=== PATIENT | female | born 1970 | race Caucasian/White ===

== ENCOUNTER 2022-09-25 23:48 | Emergency (ER) | payer OTHER ==
[2022-09-25 23:58] VITALS: BP 164/71; PULSE 69; RESP 18; TEMP 98; BMI 28.3
[2022-09-26] MEDS ORDERED: diphenhydrAMINE HCL 25 MG CAPSULE (FP) PO ONE ×2 (02:39→02:51)
== END 2022-09-26 03:52 | disposition home or self-care (01) ==
LOC: JER 23:48
DX: H02.841 Edema of right upper eyelid (principal)
CPT/HCPCS: 82962; 99283-25